=== PATIENT | female | born 1970 | race Native Hawaiian/Other Pacific Islander ===

== ENCOUNTER 2021-05-07 12:02 | Outpatient (CLI) | payer BC ==
[2021-05-07 12:55] LABS: % Iron Saturation 9.58 %; Alanine Aminotransferase 10 units/L (7-56); Albumin 4.1 g/dL (3.9-5); Blood Urea Nitrogen 13 mg/dL (7-17); Calcium 9.3 mg/dL (8.4-10.2); Chol/HDL Ratio 4.05 %; HDL Cholesterol 54 mg/dL (40-59); Hemolysis Index 1; Iron 41 ug/dL (37-170); LDL Cholesterol,Direct 155 mg/dL (50-130); Total Iron Binding Capacity 428 mcg/dL (250-450)
[2021-05-07 13:12] LABS: BUN/Creatinine Ratio 19
[2021-05-07 13:15] LABS: Basophils # (Auto) 0.1 K/mm3 (0.0-0.1); Basophils % (Auto) 1.2 % (0.0-1.8); Eosinophils # (Auto) 0.2 K/mm3 (0.0-0.4); Eosinophils % (Auto) 1.8 % (0.0-4.3); Hematocrit 34.3 % (30.3-42.9); Lymphocytes # (Auto) 2.5 K/mm3 (1.2-5.4); Lymphocytes % (Auto) 27.4 % (13.4-35.0); Mean Corpuscular HGB Conc 35 % (30-34); Mean Corpuscular Volume 79 fl (79-97); Monocytes # (Auto) 0.7 K/mm3 (0.0-0.8); Monocytes % (Auto) 7.3 % (0.0-7.3); Platelet Count 377 K/mm3 (140-440); Red Blood Count 4.37 M/mm3 (3.65-5.03); Red Cell Distribution Width 15.3 % (13.2-15.2)
[2021-05-11 12:11] LABS: Vitamin D, 25-OH, D2 <4 ng/mL
== END 2021-05-07 12:03 | disposition home or self-care (01) ==
LOC: LAB 12:02
PROVIDERS: ATTEND Surgery
DX: Z01.812 Encounter for preprocedural laboratory examination (principal); Z13.1 Encounter for screening for diabetes mellitus; E66.01 Morbid (severe) obesity due to excess calories; E55.9 Vitamin D deficiency, unspecified; K30 Functional dyspepsia
CPT/HCPCS: 36415; 80053; 80061; 82306; 82607; 82728; 83036; 83550; 84443; 85025; 85730

== ENCOUNTER → 2021-06-11 | Outpatient (CLI) | payer BC | END | disposition home or self-care (01) | LOC: SLR 11:00 | PROVIDERS: ATTEND Surgery | DX: G47.30 Sleep apnea, unspecified (principal) | CPT/HCPCS: G0399 ==

== ENCOUNTER 2021-06-13 11:00 | Outpatient (CLI) | payer BC | END 2021-06-13 11:01 | disposition home or self-care (01) | LOC: SLR 11:00 | PROVIDERS: ATTEND Surgery | DX: G47.33 Obstructive sleep apnea (adult) (pediatric) (principal) | CPT/HCPCS: 95811 ==

== ENCOUNTER 2021-06-30 09:12 | Outpatient (CLI) | payer BC ==
--- NOTE | 2021-07-02 12:01 | Pulmonary Function Test ---
DATE OF VISIT: 06/30/2021 PULMONARY FUNCTION TEST SPIROMETRY: FVC 2.27 liters, which is 76% of the predicted and FEV1 of 1.98 liters, which is 83% of the predicted and FEV1/FVC ratio is 87. Flow volume loop FEF 25-75%, 2.34 liters per second, which is 92% of the predicted. The patient's slow vital capacity is 2.55, which is 90% of the predicted and the patient's TLC 4.30 liters, which is 85% of predicted and the patient's DLCO is not performed. IMPRESSION: Normal pulmonary function test. TID: [id number] RECEIPT: [id number] ELANAM/TEMITOPE cc: Ovi Aggarwal MD
== END 2021-06-30 09:13 | disposition home or self-care (01) ==
LOC: PF 09:12
PROVIDERS: ATTEND Surgery
DX: E66.01 Morbid (severe) obesity due to excess calories (principal); E66.2 Morbid (severe) obesity with alveolar hypoventilation
CPT/HCPCS: 94010; 94726; 94729

== ENCOUNTER 2021-07-08 07:33 | Day surgery (SDC) | payer BC ==
[~2021-07-08 07:33] MED LIST: SODIUM CHLORIDE 0.9% 1000 ML 1,000 ML IV SCH
--- NOTE | 2021-07-08 09:36 | Operative Report ---
Operative Report Operative Report: DATE: 07/08/2021 SURGERY: Upper endoscopy. SURGEON: Ovi Aggarwal M.D. PROCEDURE: EGD with biopsy PRE OP DX: morbid obesity, GERD POST OP DX: morbid obesity, GERD TYPE OF ANESTHESIA: MAC. ESTIMATED BLOOD LOSS: None. COMPLICATIONS: None. SPECIMENS REMOVED: antral biopsy FINDINGS: 1. Small hiatal hernia. 2. antral gastritis INDICATIONS:INDICATION FOR PROCEDURE: Patient is a 51-year-old female with a long history of morbid obesity. She is planned to have a weight loss procedure and is here for preoperative planning EGD. PROCEDURE DETAILS: After consent was reviewed, patient was taken back to the operating room where patient was placed in the left lateral decubitus position and a bite block was placed in the mouth. After a time-out was called, MAC anesthesia was initiated. I then passed the endoscope into her oropharynx, into her esophagus, visualized the entire esophagus, which was all within normal limits. Z-line was noted to about 35 cm from incisors. I then visualized the stomach which was noted to have acidic fluid pooling and the first portion of the duodenum and there were no abnormalities I could clearly visualize except for antral gastritis. A cold forceps biopsy of the antrum was taken and will be sent to pathology to evaluate for H.pylori. I then retroflexed the scope in the stomach and visualized the hiatus and I could see a small hiatal hernia. I then desufflated the stomach and removed the endoscope. Patient tolerated procedure well and was transferred to recovery room in good and stable condition.
--- NOTE | 2021-07-08 09:40 | Discharge Summary ---
Providers - Providers Date of Admission: 07/08/2021 Date of discharge: 07/08/21 Attending physician: MADELINE VIZCARRA MD Primary care physician: ELOY PATTON Hospitalization Reason for admission: pre-op planning egd Condition: Good Procedures: egd with bx Hospital course: Pt presented for a pre-op EGD as part of planning for up coming bariatric surgery. Procedure was uneventful and pt recovered well and was discharged to home. Disposition: 01 HOME / SELF CARE / HOMELESS Final Discharge Diagnosis (Prints w/discharge instructions): gerd, morbid obesity Core Measure Documentation - Palliative Care Palliative Care/ Comfort Measures: Not Applicable - Core Measures Any of the following diagnoses?: none Exam - Physical Exam Narrative exam: unchanged from pre-op Plan Activity: advance as tolerated Diet: low carbohydrate Follow up with: ELOY PATTON MD [Primary Care Provider] - 7 Days
--- NOTE | 2021-07-08 09:52 | Anesthesia Day of Surgery ---
Anesthesia Day of Surgery - Day of Surgery Patient Examined: Yes Patient H&P Reviewed: Yes Patient is NPO: Yes
--- NOTE | 2021-07-08 09:52 | Anesthesia Consultation ---
Anesthesia Consult and Med Hx Date of service: 07/08/21 - Airway Anesthetic Teeth Evaluation: Good ROM Head & Neck: Adequate Mental/Hyoid Distance: Adequate Mallampati Class: Class II Intubation Access Assessment: Good - Pulmonary Exam CTA: Yes - Cardiac Exam Cardiac Exam: No Murmur - Pre-Operative Health Status ASA Pre-Surgery Classification: ASA3 Proposed Anesthetic Plan: MAC - Pulmonary Hx Sleep Apnea: Yes - Cardiovascular System Hx Hypertension: Yes - Gastrointestinal Hx Gastroesophageal Reflux Disease: Yes - Other Systems Hx Obesity: Yes
[2021-07-08] MEDS ORDERED: propofoL 200 MG/20 ML VIAL IV ONE (10:16)
[2021-07-08] MEDS ORDERED: LIDOCAINE MPF (2%) 20 MG/1 ML VIAL 5 ML ONE (10:16)
[2021-07-08] MEDS ORDERED: MIDAZOLAM 2 MG/2 ML INJ ONE (10:16)
--- NOTE | 2021-07-08 12:23 | Post Anesthesia Evaluation ---
- Post Anesthesia Evaluation Patient Participated: Yes Airway Patent: Yes Stable Respiratory Function: Yes Nausea/Vomiting: No Temp > 96.8F: Yes Pain Manageable: Yes Adequeate Hydration: Yes Anesthesia Complications: No Block Receding Appropriately: Not Applicable Patient on Ventilator: No
[2021-07-08 13:24] VITALS: BP 104/62
== END 2021-07-08 13:26 | disposition home or self-care (01) ==
LOC: GIO 07:33
PROVIDERS: ATTEND Surgery
DX: K21.9 Gastro-esophageal reflux disease without esophagitis (principal); K29.60 Other gastritis without bleeding; K44.9 Diaphragmatic hernia without obstruction or gangrene; I10 Essential (primary) hypertension; E66.01 Morbid (severe) obesity due to excess calories; Z79.899 Other long term (current) drug therapy; Z88.0 Allergy status to penicillin; Z98.890 Other specified postprocedural states
CPT/HCPCS: 43239; 88305; 88342; J2250; J2704; J3490; J7030; J7120; Q0162